=== PATIENT | male | born 1975 | race Caucasian/White ===

== ENCOUNTER 2021-03-10 12:32 | Emergency (ER) | payer OTHER ==
[~2021-03-10] VITALS: Ht 177.8 cm; Wt 77.1 kg
--- NOTE | 2021-03-10 12:55 | RAD ---
Single AP view of the chest. Comparison: None. Indication: Chest pain Findings: The heart is not enlarged. There is no pneumothorax or effusion. No air space or interstitial diseas e. Impression: 1. No acute cardiopulmonary process. Electronically signed by: Isai Spicer MD (03/10/2021 12:53 PM) [id number]
--- NOTE | 2021-03-10 13:09 | PHYS DOC ---
Past History Past Surgical History: Other Additional Past Surgical Histo: Kidney right sent Alcohol Use: Rarely General Adult EDM: Chief Complaint: CHEST PAIN HPI: HPI: 45-year-old male presents with chest pain. Patient is post-COVID. He just went back to work 2 days ago. He had symptoms over and was tested + February 25. The patient has been having this sharp/burning chest pain that only lasts for a few seconds. It is central in the chest and moderate in intensity. He presents today because he has had this every couple hours over the last 36 hours. He had symptoms like this toward the tail end of his COVID isolation but it was much less frequent. He has no history of cardiac disease. He has no other complaints at this time. Denies fever or chills. Review of Systems: Review of Systems: Constitutional: Denies fever or chills Eyes: Denies change in visual acuity HENT: Denies nasal congestion or sore throat Respiratory: Denies cough or shortness of breath Cardiovascular: Chest pain GI: Denies abdominal pain, nausea, vomiting, bloody stools or diarrhea : Denies dysuria Musculoskeletal: Denies back pain or joint pain Integument: Denies rash Neurologic: Denies headache, focal weakness or sensory changes Endocrine: Denies polyuria or polydipsia Lymphatic: Denies swollen glands Psychiatric: Denies depression or anxiety Allergies: Allergies: Allergies Coded Allergies Type Severity Reaction Last Updated Verified carbinoxamine Allergy Unknown 03/10/21 Yes pseudoephedrine Allergy Unknown 03/10/21 Yes Physical Exam: PE: Constitutional: Well developed, well nourished, no acute distress, non-toxic appearance. [] HENT: Normocephalic, atraumatic, bilateral external ears normal, oropharynx moist, no oral exudates, nose normal. [] Eyes: PERRLA, EOMI, conjunctiva normal, no discharge. [] Neck: Normal range of motion, no tenderness, supple, no stridor. [] Cardiovascular: Heart rate 58, regular rhythm, no murmur [] Lungs & Thorax: Bilateral breath sounds clear to auscultation [] Abdomen: Bowel sounds normal, soft, no tenderness, no masses, no pulsatile masses. [] Skin: Warm, dry, no erythema, no rash. [] Back: No tenderness, no CVA tenderness. [] Extremities: No tenderness, no cyanosis, no clubbing, ROM intact, no edema. [] Neurologic: Alert and oriented X 3, normal motor function, normal sensory function, no focal deficits noted. [] Psychologic: Affect normal, judgement normal, mood normal. [] Current Patient Data: Vital Signs: Vital Signs Date Time Temp Pulse Resp B/P (MAP) Pulse Ox O2 Delivery O2 Flow Rate FiO2 03/10/21 12:42 98.4 71 16 147/107 (120) 96 Room Air EKG: EKG: [] Radiology/Procedures: Radiology/Procedures: [] Impressions: Single AP view of the chest. Comparison: None. Indication: Chest pain Findings: The heart is not enlarged. There is no pneumothorax or effusion. No air space or interstitial disease. Impression: 1. No acute cardiopulmonary process. Electronically signed by: Isai Palacios MD (03/10/2021 12:53 PM) [id number] DICTATED AND SIGNED BY: ISAI PALACIOS MD DATE: 03/10/21 1253 CC: ILANA RODRIGUEZ DO; DONAVAN KC MD ~MTH0 0 Heart Score: C/O Chest Pain: Yes HEART Score for Chest Pain: HEART Score for Chest Pain Response (Comments) Value History Slighlty/Non-Suspicious 0 ECG Normal 0 Age < 45 0 Risk Factors No Risk Factors 0 Total 0 Risk Factors: Risk Factors: DM, Current or recent (<one month) smoker, HTN, HLP, family history of CAD, obesity. Risk Scores: Score 0 - 3: 2.5% MACE over next 6 weeks - Discharge Home Score 4 - 6: 20.3% MACE over next 6 weeks - Admit for Clinical Observation Score 7 - 10: 72.7% MACE over next 6 weeks - Early Invasive Strategies Course & Med Decision Making: Course & Med Decision Making Pertinent Labs and Imaging studies reviewed. (See chart for details) The patient's EKG is unremarkable. His labs are unremarkable. Troponin is negative. His chest x-ray is negative for acute findings. This does not appear to be cardiopulmonary in nature. It could be musculoskeletal. If it does not go away in another week or so, the patient should follow-up and consider further evaluation by cardiology. He is stable for discharge at this time. [] Neil Disclaimer: Neil Disclaimer: This electronic medical record was generated, in whole or in part, using a voice recognition dictation system. Departure Departure: Impression: Primary Impression: Chest pain Qualified Codes: R07.89 - Other chest pain Disposition: 01 HOME / SELF CARE / HOMELESS Condition: STABLE Referrals: DONAVAN KC MD (PCP) Patient Instructions: Chest Pain (Nonspecific), [id number] ILANA RODRIGUEZ DO Mar 10, 2021 13:09
--- NOTE | 2021-03-10 13:17 | EKG ---
[address] [address] Test Date: 2021-03-10 Test Time: 12:39:41 Pat Name: MARILOU LARSON Department: Room: Gender: M Manager Access: CONNOR : 1975 Requested By: ILANA RODRIGUEZ Order Number: [id number] Reading MD: Rufino Alexandra Measurements Intervals [place] Rate: 58 P: 39 [place]: 142 QRS: 50 QRSD: 86 T: 21 QT: 372 QTc: 368 Interpretive Statements SINUS RHYTHM ATRIAL PREMATURE COMPLEX(ES) MILD NON SPECIFIC ST CHANGES Electronically Signed On 03-13-2021 16:33:54 [employer] by Rufino Alexandra
[2021-03-10 13:58] LABS: BASO % 1 % (0-3); EOS # 0.1 x10^3/uL (0.0-0.7); EOS % 1 % (0-3); HEMATOCRIT 43.5 % (39.0-53.0); HEMOGLOBIN 14.7 g/dL (13.0-17.5); LYMPH # 1.8 x10^3/uL (1.0-4.8); LYMPH % 33 % (24-48); MEAN CORPUSCULAR HEMOGLOBIN 30 pg (25-35); MEAN CORPUSCULAR HGB CONC 34 g/dL (31-37); MEAN CORPUSCULAR VOLUME 89 fL (79-100); MONO # 0.6 x10^3/uL (0.0-1.1); MONO % 10 % (0-9); NEUT # 2.9 x10^3uL (1.8-7.7); NEUT % 54 % (31-73); PLATELET COUNT 170 x10^3/uL (140-400); RED BLOOD COUNT 4.92 x10^6/uL (4.30-5.70); RED CELL DISTRIBUTION WIDTH 12.9 % (11.5-14.5); WHITE BLOOD COUNT 5.4 x10^3/uL (4.0-11.0)
[2021-03-10 14:51] LABS: CALCIUM 8.6 mg/dL (8.5-10.1); CREATININE 0.9 mg/dL (0.7-1.3); GFR 91.7; POTASSIUM 4.5 mmol/L (3.5-5.1)
[2021-03-10 14:58] LABS: ALBUMIN 4.1 g/dL (3.4-5.0); ALBUMIN/GLOBULIN RATIO 1.5 (1.0-1.7); TOTAL BILIRUBIN 0.5 mg/dL (0.2-1.0); TOTAL PROTEIN 6.9 g/dL (6.4-8.2)
[2021-03-10 15:20] VITALS: BP 115/76
== END 2021-03-10 15:21 | disposition home or self-care (01) ==
LOC: ER 12:32
DX: R07.89 Other chest pain (principal); Z86.16 Personal history of COVID-19; Z88.8 Allergy status to other drugs, medicaments and biological substances
CPT/HCPCS: 36415; 71045; 80053; 84484; 85025; 93005; 99285

== ENCOUNTER → 2021-06-22 | Outpatient (CLI) | payer OTHER ==
[~2021-06-22] MED LIST: IOHEXOL 240 MG/ML 50ML VIAL. PO ONE; IOHEXOL 300 MG/ML 75 ML VIAL. IV ONE
--- NOTE | 2021-06-22 10:12 | RAD ---
INDICATION: Reason: ABD PAIN- STARTED DRINKING AT 8:25, omni 300 / Spl. Instructions: / History: COMPARISON: None. TECHNIQUE: Axial CT images were obtained through the abdomen and pelvis with intravenous contrast. One or more of the following individualized dose reduction techniques were utilized for this examinat ion: 1. Automated exposure control; 2. Adjustment of the mA and/or kV according to patient size; 3 . Use of iterative reconstruction technique. FINDINGS: Vascular: No abdominal aortic aneurysm. Hepatobiliary: No intrahepatic biliary duct dilation. Pancreas: No peripancreatic edema. Spleen: Spleen unremarkable. Renal/Bladder: Right renal cyst. Prominence of the right greater than left renal pelvis. Gastrointestinal: Moderate stool within the colon. No periappendiceal inflammatory changes. No dilate d loops of bowel to suggest obstruction. Degenerative changes of the spine and hips. IMPRESSION: * No evidence of bowel obstruction or appendicitis. Electronically signed by: Abhay Field MD (06/22/2021 10:10 AM) [id number]
--- NOTE | 2021-06-22 11:02 | RAD ---
Exam Date: 06/22/2021 8:02 AM US ABDOMEN COMPLETE Indication: Reason: ABD PAIN / Spl. Instructions: / History: . TECHNIQUE: Multiple longitudinal and transverse sonographic images of the abdomen are submitted for interpretation. FINDINGS: The liver is normal in size and echogenicity. The portal vein is patent with hepatopetal flow. No focal intrahepatic abnormality is seen. The gallbladder is normal, without gallstones, gallbladder wall thickening or pericholecystic fluid. There is no biliary ductal dilatation, with the common bile duct measuring 3 mm. The spleen is normal in size and echogenicity. The visualized abdominal aorta, inferior vena cava an d pancreas are within normal limits. There is no upper abdominal ascites. The kidneys are normal in appearance, with the right kidney measuring 10.4 cm and the left kidney measuring 10.9 cm. IMPRESSION: Normal abdominal ultrasound. Electronically signed by: Sabas Casey MD (06/22/2021 11:00 AM) [id number]
== END ==
LOC: US 07:59
PROVIDERS: ATTEND Internal Medicine Gastroenterology
DX: N28.1 Cyst of kidney, acquired (principal)
CPT/HCPCS: 74177; 76700; Q9966; Q9967

== ENCOUNTER → 2021-06-25 | Outpatient (CLI) | payer OTHER ==
--- NOTE | 2021-06-25 11:54 | RAD ---
EXAMINATION: DG SMALL BOWEL FOLLOW THROUGH (SMALL BOWEL FOLLOW-THROUGH) CLINICAL HISTORY: Abdominal pain TECHNIQUE: Routine small bowel follow-through performed after oral administration of barium contrast. - Number of fluoroscopic images: 0 - Fluoroscopy time: N/A COMPARISON: CT abdomen/pelvis 06/22/2021 FINDINGS: Progressive passage of contrast material through the stomach and small bowel with contrast visualized in the colon by 2 hours. Small bowel caliber and mucosal pattern within normal limits. Terminal ileu m unremarkable. IMPRESSION: Unremarkable small bowel series. Electronically signed by: Reginaldo Dacosta DO (06/25/2021 11:52 AM) [id number]
== END ==
LOC: RAD 08:28
PROVIDERS: ATTEND Internal Medicine Gastroenterology
DX: R10.12 Left upper quadrant pain (principal); R10.11 Right upper quadrant pain; R10.13 Epigastric pain
CPT/HCPCS: 74250